=== PATIENT | male | born 1975 | race Caucasian/White ===

== ENCOUNTER 2019-07-31 08:16 | Emergency (ER) | payer SELFPAY ==
[~2019-07-31] VITALS: Ht 172.7 cm; Wt 65.8 kg
--- NOTE | 2019-07-31 08:25 | NUR ---
CAME IN FOR LEFT FACE PAIN AND SWELLING DUE TO TOOTH INFECTION, TO ER BED 4, HOOKED TO [facility], AWAITING MD BRENNER
--- NOTE | 2019-07-31 08:26 | NUR ---
DR ANDERSON AT BEDSIDE
[2019-07-31] MEDS ORDERED: KETOROLAC TROMETHAMINE INJ 60 MG/2 ML VIAL IM ONE ×2 (08:30→08:45)
[2019-07-31] MEDS ORDERED: CLINDAMYCIN 900 MG/6 ML VIAL ONE (08:45)
[2019-07-31] MEDS ORDERED: CLINDAMYCIN 900 MG/6 ML VIAL IM ONE (09:00)
--- NOTE | 2019-07-31 09:06 | NUR ---
Patient discharged to home in stable condition. Written and verbal after care instructions given. Patient verbalizes understanding of instruction.
[2019-07-31 09:22] VITALS: BP 143/87
== END 2019-07-31 09:10 | disposition home or self-care (01) ==
LOC: ER 08:17
DX: K04.7 Periapical abscess without sinus (principal); I10 Essential (primary) hypertension; F17.200 Nicotine dependence, unspecified, uncomplicated
CPT/HCPCS: 96372 ×2; 99283; J1885; J3490